=== PATIENT | female | born 1975 | race Caucasian/White ===

== ENCOUNTER → 2016-12-13 | Outpatient (CLI) | payer OTHER ==
--- NOTE | 2016-12-13 14:00 | WOMENS IMAGING REPORT ---
EXAM DESCRIPTION: BONE DENSITY HIP/SPINE COMPLETED DATE/TIME: 12/13/2016 1:53 pm REASON FOR STUDY: M81.0 M81.0 AGE-RELATED OSTEOPOROSIS W/O CURRENT PATHOLOGICAL FRAC COMPARISON: None. TECHNIQUE: Dual-Energy X-ray Absorptiometry (DEXA) of the AP Spine and Hip. LIMITATIONS: None. FINDINGS: LUMBAR SPINE: The bone mineral density (BMD) measured from L1-L4 in the AP projection correlates with a T-score of 0.6, which is normal as defined by the World Health Organization. HIP: The bone mineral density (BMD) measured in the left hip correlates with a T-score of -1.2, which is o steopenia as defined by the World Health Organization. IMPRESSION: 1. LUMBAR SPINE: NORMAL. 2. HIP: OSTEOPENIA. COMMENT: The World Health Organization defines low BMD as follows: T-score: Normal: Greater than -1.0 Osteopenia: Between -1.0 and -2.5 Osteoporosis: Less than -2.5 without fractures Established osteoporosis: Less than -2.5 with fractures In general, you may wish to consider: Diagnosis Treatment Follow-up DEXA Normal BMD Prevention 2-3 years Osteopenia Prevention/Therapy 1-2 years Osteoporosis Therapy Yearly TECHNICAL DOCUMENTATION: JOB ID: [id number] [employer] All Rights Reserved
== END ==
LOC: WI 13:19
PROVIDERS: ATTEND Internal Medicine
DX: M81.0 Age-related osteoporosis without current pathological fracture (principal)
CPT/HCPCS: 77080

== ENCOUNTER 2018-07-29 08:07 | Day surgery (SDC) | payer OTHER ==
[2018-07-24 09:39] LABS: HEMATOCRIT 39.1 % (36.0-47.0); HEMOGLOBIN 13.7 g/dL (12.0-15.5); MEAN CORPUSCULAR HEMOGLOBIN 30.7 pg (27.0-33.4); MEAN CORPUSCULAR HGB CONC 35.1 g/dL (32.0-36.0); MEAN CORPUSCULAR VOLUME 88 fl (80-97); PLATELET COUNT 304 10^3/uL (150-450); RED BLOOD COUNT 4.47 10^6/uL (3.72-5.28); WHITE BLOOD COUNT 3.9 10^3/uL (4.0-10.5)
[2018-07-24 09:49] LABS: APPEARANCE,URINE CLEAR; BILIRUBIN,URINE NEGATIVE (NEGATIVE); COLOR,URINE STRAW; GLUCOSE, URINE NEGATIVE (NEGATIVE); KETONES,URINE NEGATIVE (NEGATIVE); LEUKOCYTE ESTERASE,URINE NEGATIVE (NEGATIVE); NITRITE,URINE NEGATIVE (NEGATIVE); PROTEIN,URINE NEGATIVE (NEGATIVE); URINE SPECIFIC GRAVITY 1.005; UROBILINOGEN,URINE NEGATIVE mg/dL (<2.0)
[2018-07-24 10:06] LABS: ANION GAP 9 (5-19); BLOOD UREA NITROGEN 12 mg/dL (7-20); CALCIUM 9.2 mg/dL (8.4-10.2); CARBON DIOXIDE 24 mmol/L (22-30); CHLORIDE 106 mmol/L (98-107); GLUCOSE 92 mg/dL (75-110); SODIUM 138.9 mmol/L (137-145)
[2018-07-24 10:10] LABS: POTASSIUM 4.2 mmol/L (3.6-5.0)
[~2018-07-29 08:07] MED LIST: CEFAZOLIN SODIUM 2 GM in DEXTROSE 5%-WATER 100 ML IV PRN; GABAPENTIN 400 MG CAPSULE PO PRN; LACTATED RINGERS 1000 ML IV PRN; LIDOCAINE 0.5% INJ-PF (5 MG/ML) 50 ML SDV SUBCUT PRN
[2018-07-29] MEDS ORDERED: GABAPENTIN 400 MG CAPSULE ONE (09:25)
[2018-07-29] MEDS ORDERED: GABAPENTIN 400 MG CAPSULE PO ONE (09:30)
[2018-07-29] MEDS ORDERED: PROPOFOL INJ 200 MG/20 ML VIAL IV ONE (10:16)
[2018-07-29] MEDS ORDERED: MIDAZOLAM 2 MG/2 ML INJ ONE (10:16)
[2018-07-29] MEDS ORDERED: FENTANYL CITRATE INJ/PF 250 MCG/5 ML AMPULE ONE (10:16)
[2018-07-29] MEDS ORDERED: ACETAMINOPHEN 1,000 MG/100 ML RTUPB IV ONE (10:17)
[2018-07-29] MEDS ORDERED: BUPIVACAINE HCL 0.25 % INJ/PF (2.5 MG/1 ML) 30 ML VIAL ONE (10:27)
[2018-07-29] MEDS ORDERED: METHYLENE BLUE 50 MG/10 ML AMPULE ONE (10:27)
[2018-07-29] MEDS ORDERED: HYDROMORPHONE HCL INJ/PF 2 MG/ML AMPULE ONE (12:22)
[2018-07-29] MEDS ORDERED: MORPHINE SULFATE 10 MG/ML INJ IV PRN ×2 (12:32→13:38)
[2018-07-29] MEDS ORDERED: OXYCODONE-ACETAMINOPHEN 5-325 MG TABLET PO PRN ×3 (12:32→13:37)
[2018-07-29] MEDS ORDERED: DIPHENHYDRAMINE HCL 50 MG/ML VIAL IV PRN (12:32)
[2018-07-29] MEDS ORDERED: MEPERIDINE HCL/PF INJ 25 MG/1 ML DISP.SYRIN IV PRN (12:32)
[2018-07-29] MEDS ORDERED: PROMETHAZINE HCL INJ 25 MG/1 ML VIAL IV PRN ×3 (12:32→13:39)
[2018-07-29] MEDS ORDERED: FENTANYL CITRATE INJ/PF 100 MCG/2 ML AMPUL IV PRN ×3 (12:32)
[2018-07-29] MEDS ORDERED: GLYCOPYRROLATE 1 MG/5 ML SYRINGE ONE (12:49)
[2018-07-29] MEDS ORDERED: DEXAMETHASONE SOD PHOSPHATE INJ 4 MG/1 ML VIAL ONE (12:49)
[2018-07-29] MEDS ORDERED: ROCURONIUM BROMIDE INJ 50 MG/5 ML VIAL IV ONE (12:49)
[2018-07-29] MEDS ORDERED: NEOSTIGMINE METHYLSULFATE 10 MG/10 ML VIAL ONE (12:49)
[2018-07-29] MEDS ORDERED: ONDANSETRON HCL INJ/PF 4 MG/2 ML SDV ONE (12:49)
[2018-07-29] MEDS ORDERED: FENTANYL CITRATE INJ/PF 100 MCG/2 ML AMPUL ONE (13:13)
[2018-07-29] MEDS ORDERED: ONDANSETRON HCL INJ/PF 4 MG/2 ML SDV IV PRN (13:38)
[2018-07-29] MEDS ORDERED: OXYCODONE HCL IR 5 MG TABLET PO PRN (14:25)
--- NOTE | 2018-07-29 14:57 | OPERATIVE REPORT E ---
Operative Report NAME: SHIV AHRPER : 1975 AGE: 42Y DATE OF SURGERY: 07/29/2018 ROOM: 224 PREOPERATIVE DIAGNOSES: 1. Abnormal uterine bleeding unresponsive to previous medical and surgical intervention, including endometrial ablation. 2. Chronic pelvic pain. POSTOPERATIVE DIAGNOSES: 1. Abnormal uterine bleeding unresponsive to previous medical and surgical intervention, including endometrial ablation. 2. Chronic pelvic pain. OPERATION: 1. Robotic total laparoscopic hysterectomy. 2. Bilateral salpingectomy of the remnants of the fallopian tubes from her history of bilateral tubal ligation. 3. Cystoscopy. SURGEON: Angelica Jiménez M.D. CELL TENDER: Martha Diaz M.D. ANESTHESIA: @ ESTIMATED BLOOD LOSS: 150 mL. URINE OUTPUT: 200 mL clear urine during the procedure. FLUIDS: 1300 mL. COMPLICATIONS: None. SPECIMENS: Uterus, cervix, remnants of the tubes bilaterally. DISPOSITION: To PACU stable. CONSENT: The patient is a 42-year-old female who presented with a chief complaint of endometrial bleeding unresponsive to previous medical and surgical intervention, including endometrial ablation. The patient desired definitive surgical management. She was consented on the procedure of the robotic hysterectomy, including, but not limited to, risks involving bleeding, infection, injury to bowel or bladder, risk of transfusion, possible exploratory laparotomy, and any other indicated procedure. The patient has agreed and consented and proceeded to the operating room. PROCEDURE: The patient was taken to the OR where general anesthesia was achieved without difficulty. She was prepped and draped in the usual sterile fashion. From below a heavy weighted speculum was inserted and a Murry retractor anteriorly was introduced. Cervix was visualized and grasped with a single-tooth tenaculum. The cervical os was stenotic and was dilated with multiple Hegar dilators. The VCare manipulator was introduced without difficulty. After sounding to approximately 8 cm insufflation of the balloon, anchored in place, [id number] stitches around 3 and 9 o'clock were introduced as well and anchored within the VCare itself. At this point a heavy weighted speculum and the tenaculum were removed and attention was turned to above for the laparoscopic portion. Within the umbilicus itself horizontal incision was performed for a 10 mm port. Veress needle was introduced without difficulty. Drop test was successful. Carbon dioxide was used to insufflate the abdomen. Three additional ports were inserted under direct visualization after laparoscopic confirmation of the intra-abdominal placement, 1 in the right lower, 1 in the left lower quadrant, and 1 in the right upper quadrant. All were inserted under direct visualization without any problems or complications. At this point the robot was docked and appropriate, and then the procedure was initiated. At this point both ureters were identified on both sides, on the right and left, and they were both well away from the surgical field. On the right side of the procedure, right fallopian tube from the fimbriated end was grasped, picked up, cauterized, and transected along the mesosalpinx all the way to the cornual region. The right utero-ovarian ligament was cauterized and transected and the right round ligament was cauterized and transected all the way down to the level of the uterine vessels, cauterization and transection using the vessel seal. On the contralateral side in a similar fashion the fimbriated end was grasped, cauterized, clamped, and dissected along the mesosalpinx all the way down to the cornual region and round ligaments were cauterized and transected. Utero-ovarian ligaments were cauterized and transected all the way down to the level of the uterine vessels. The anterior broad ligament leaf was cauterized and transected appropriately and the posterior leaf of the broad ligament as well. Good exposure until the bladder was delineated. The bladder was pushed down far away from the surgical field. Again, remember that the ureters were both away from the surgical field at all times and were within the visual field so appropriately I was to avoid being close to them. At this point the bladder was pushed further down. Anterior colpotomy was performed. The posterior colpotomy was performed. The green portion of the VCare was visualized and in a circumferential manner the colpotomy was connected from anterior to posterior aspect and at this point the uterus, cervix, fallopian tubes bilaterally remnants were removed vaginally. At this point the vaginal cuff was closed with a V-Loc suture in a running continuous fashion and hemostasis was obtained. Small oozes on the pelvic sidewalls were identified; those were cauterized with bipolar. After multiple irrigation and suction back and forth hemostasis was obtained. Prophylactic FloSeal was injected along the vaginal cuff and the pelvic sidewalls. At this point the hysterectomy portion was complete, the abdomen was desufflated, the trocars were removed, and then from below the cystoscopy portion was performed. Methylene blue was introduced during the closure of the vaginal cuff when Anesthesia was asked to give it. Upon cystoscopy the bubble sign was visualized, no trauma or foreign body visualized on the bladder, and both the right and left ureteral orifices were visualized with strong efflux flow of methylene blue. At this point the cystoscopic portion was complete. Vaginal mucosa was inspected. There were no lacerations. The labia majora and minora were both visualized without any injury to them. At this point attention was turned back to above where the trocar sites were reapproximated using 4-0 Monocryl in a running continuous fashion. The supraumbilical incision was reapproximated initially with a UR6 to reapproximate the fascia, and everything was closed with a 4-0 Monocryl in a running continuous fashion. Bupivacaine was injected along the trocar sites for postoperative pain control. The patient tolerated the procedure well. Sponge, lap and needle counts were correct x2. The patient was taken to the recovery room in stable condition. Specimen will be taken to pathology for further specimen examination. DICTATING PHYSICIAN: Angelica Jiménez MD [id number] PHY#: [id number] ID: [id number] JOB#: [id number] ACCT: [id number] cc:Angelica Jiménez >
[2018-07-29] MEDS ORDERED: NORMAL SALINE 1000 ML 1,000 ML IV ONE (15:00)
[2018-07-29 16:34] VITALS: BP 123/87
== END 2018-07-29 17:30 | disposition home or self-care (01) ==
LOC: OROUT 08:07 → 2S 14:14 → OROUT 17:30
PROVIDERS: ATTEND Obstetrics & Gynecology
DX: N93.9 Abnormal uterine and vaginal bleeding, unspecified (principal); G89.29 Other chronic pain; R10.2 Pelvic and perineal pain; D25.0 Submucous leiomyoma of uterus; N72 Inflammatory disease of cervix uteri; N83.8 Other noninflammatory disorders of ovary, fallopian tube and broad ligament; N80.0 Endometriosis of uterus; I10 Essential (primary) hypertension; K21.9 Gastro-esophageal reflux disease without esophagitis; Z79.899 Other long term (current) drug therapy
CPT/HCPCS: 58571; S2900; 36415; 80048; 81001; 81025; 840; 85027; 86850; 86900; 86901; 88307; J0131; J0690; J1100; J1170; J2250; J2405; J2704; J3010; J3490; Q9968